=== PATIENT | female | born 1955 | race Caucasian/White ===

== ENCOUNTER → 2017-01-08 | Outpatient (CLI) | payer BC ==
[~2017-01-08] MED LIST: LEVBID0.375 MG PO; LOTENSIN HCT 201 TAB PO
== END ==
LOC: MC.RAD 13:50
DX: Z12.31 Encounter for screening mammogram for malignant neoplasm of breast (principal)

== ENCOUNTER → 2019-03-24 | Outpatient (CLI) | payer BC | LOC: COL.VAS 13:55 | DX: I34.0 Nonrheumatic mitral (valve) insufficiency (principal) ==

== ENCOUNTER → 2019-06-03 | Outpatient (CLI) | payer BC | LOC: MC.RAD 15:00 | DX: Z12.31 Encounter for screening mammogram for malignant neoplasm of breast (principal); N64.89 Other specified disorders of breast ==

== ENCOUNTER → 2019-06-12 | Outpatient (CLI) | payer BC | LOC: MC.RAD 07:30 | DX: N60.01 Solitary cyst of right breast (principal) ==

== ENCOUNTER → 2020-08-30 | Outpatient (CLI) | payer BC | LOC: MC.RAD 08:14 | DX: Z12.31 Encounter for screening mammogram for malignant neoplasm of breast (principal) ==

== ENCOUNTER → 2020-10-18 | Outpatient (CLI) | payer BC | LOC: COL.RAD 11:12 | DX: Z90.710 Acquired absence of both cervix and uterus (principal); R10.84 Generalized abdominal pain | CPT/HCPCS: Q9967 ==

== ENCOUNTER → 2021-08-08 | Outpatient (CLI) | payer MEDICARE, BC | LOC: COL.VAS 13:57 | DX: R06.02 Shortness of breath (principal) ==

== ENCOUNTER → 2022-09-10 | Outpatient (CLI) | payer MEDICARE, BC | LOC: MC.RAD 11:22 | DX: Z12.31 Encounter for screening mammogram for malignant neoplasm of breast (principal) ==

== ENCOUNTER 2023-07-19 07:59 | Day surgery (SDC) | payer MEDICARE, BC ==
[~2023-07-19] VITALS: Ht 165.1 cm; Wt 91.3 kg
[~2023-07-19 07:59] MED LIST changes: +LR 1,000 ML IV SCH; +Ondansetron 4 MG/2 ML VIAL IV PRN
[2023-07-19 09:04] VITALS: BP 135/91; PULSE 88; TEMP 97.7
[2023-07-19] MEDS ORDERED: COREG12.5 MG PO (09:09)
[2023-07-19] MEDS ORDERED: ALDACTONE50 MG PO (09:09)
[2023-07-19] MEDS ORDERED: COZAAR 50MG50 MG/TAB PO (09:10)
[2023-07-19] MEDS ORDERED: DULOXETINE HCL40 MG PO (09:11)
[2023-07-19] MEDS ORDERED: ATROVENTNS0.03% NS (09:12)
[2023-07-19] MEDS ORDERED: ASPIRIN E.C. 8181 MG PO (09:12)
[2023-07-19] MEDS ORDERED: Lidocaine PF 2% (20 MG/ML) 5 ML VIAL ONE (10:00)
[2023-07-19 10:25] VITALS: BP 137/83; PULSE 71
[2023-07-19 10:35] VITALS: BP 137/80; PULSE 62
[2023-07-19 10:45] VITALS: BP 139/92; PULSE 64
--- NOTE | 2023-07-19 12:05 | NUR ---
1025 PATIENT RETURNS TO [facility] VIA CART. PT AWAKE AND ALERT. RESPIRATIONS UNLABORED. AMBULATED TO RECLINER CHAIR WITH 2:1 SBA. PT DENIES NAUSEA OR ABDOMINAL PAIN. HOOKED UP TO MONITOR AND VS OBTAINED. CALL LIGHT AT SIDE AND FRIEND PRESENT. 1030 PATIENT TOLERATING CHEESE AND CRACKERS AND COFFEE WITHOUT NAUSEA OR DIFFICULTY SWALLOWING (EGD ONLY). 1035 IN ROOM SPEAKING WITH PATIENT. 1040 D/C INSTRUCTIONS REVIEWED WITH PATIENT. PT VERBALIZED UNDERSTANDING AND A COPY OF INSTRUCTIONS PROVIDED IN D/C FOLDER. 1045 PATIENT DRESSES SELF. 1100 PATIENT DISCHARGED FROM UNIT VIA W/C TO A PERSONAL VEHICLE. PT LEFT HOSPITAL IN STABLE CONDITION.
== END 2023-07-19 11:00 | disposition home or self-care (01) ==
LOC: SDCO 07:59
DX: Z12.11 Encounter for screening for malignant neoplasm of colon (principal); D12.8 Benign neoplasm of rectum
CPT/HCPCS: J2704; J7120

== ENCOUNTER → 2023-10-15 | Outpatient (CLI) | payer MEDICARE ==
[~2023-10-15] MED LIST changes: +ALDACTONE50 MG PO; +ASPIRIN E.C. 8181 MG PO; +ATROVENTNS0.03% NS; +COREG12.5 MG PO; +COZAAR 50MG50 MG/TAB PO; +DULOXETINE HCL40 MG PO; -LR 1,000 ML IV SCH; -Ondansetron 4 MG/2 ML VIAL IV PRN
== END ==
LOC: MC.RAD 13:15
DX: Z12.31 Encounter for screening mammogram for malignant neoplasm of breast (principal)